=== PATIENT | female | born 1995 | race Hispanic/Latino ===

== ENCOUNTER 2019-01-01 23:47 | Observation (INO) | payer BC ==
[2019-01-02] MEDS ORDERED: Oxycodone/Acetaminophen 5/325 mg Tab ONE (00:29)
[2019-01-02] MEDS ORDERED: Oxycodone/Acetaminophen 5/325 mg Tab PO ONE (00:29)
--- NOTE | 2019-01-02 00:33 | ED PDOC ---
Upper Extremity Pain/Injury Time Seen by Provider: 01/01/19 23:59 Chief Complaint (Nursing): Alcohol Ingestion Chief Complaint (Provider): left hand injury History Per: Patient Additional Complaint(s): 23 y/o female brought in by EMS for evaluation of left hand injury sustained prior to arrival. Patient admits to drinking tonight, states she was racing her friend home and tripped and fell on the side walk, used left hand to break fall. Patient with abrasions to face, denies LOC, dizziness, numbness/weakness left upper extremity. Tetanus up to date Past Medical History Reviewed: Historical Data, Nursing Documentation, Vital Signs Vital Signs: Last Vital Signs Temp 98 F 01/02/19 00:24 Pulse 100 H 01/02/19 00:24 Resp 20 01/02/19 00:24 BP 100/65 01/02/19 00:24 Pulse Ox 98 01/02/19 00:24 Primary Care Provider: John Quintero - Medical History PMH: No Chronic Diseases - Surgical History Surgical History: Tonsillectomy - Family History Family History: States: No Known Family Hx - Home Medications Home Medications: Ambulatory Orders Medication Instructions Recorded Ondansetron ODT [Zofran ODT] 4 mg PO Q8 PRN #10 odt 01/02/19 oxyCODONE/Acetaminophen [Percocet 1 tab PO Q4 PRN #10 tab 01/02/19 5/325 mg Tab] - Allergies Allergies/Adverse Reactions: Allergies Allergy/AdvReac Type Severity Reaction Status Date / Time No Known Allergies Allergy Verified 01/02/19 16:12 Review of Systems ROS Statement: Except As Marked, All Systems Reviewed And Found Negative Musculoskeletal: Positive for: Hand Pain (left) Physical Exam - Reviewed Nursing Documentation Reviewed: Yes Vital Signs Reviewed: Yes - Physical Exam Appears: Positive for: Well, Non-toxic, Uncomfortable Head Exam: Positive for: ATRAUMATIC, NORMAL INSPECTION, NORMOCEPHALIC Skin: Positive for: Normal Color Eye Exam: Positive for: Normal appearance, EOMI, PERRL, Periorbital swelling (left supraorbital abrasion, edema. Abrasion to left maxilla with + tenderness) ENT: Positive for: Normal ENT Inspection Cardiovascular/Chest: Positive for: Regular Rate, Rhythm Respiratory: Positive for: Normal Breath Sounds Pulses-Radial (L): 2+ Pulses-Radial (R): 2+ Extremity: Positive for: Deformity (left hand 5th digit PIP. Distal sensation and motor intact. Skin avulsion palmar aspect left hand digits 3-5. Tender to palpate dorsal left hand 5th metacarpal with + edema, ecchymosis), Other (2 large skin abrasions right knee; FROM. No tenderness, edema, deformity) Neurological/Psych: Positive for: Awake, Alert, Oriented (x3) - Laboratory Results Result Diagrams: 01/02/19 02:06 01/02/19 02:06 - ECG O2 Sat by Pulse Oximetry: 98 - Progress ED Course And Treament: -xray left hand -xray left wrist -CT head -CT facial -Percocet PO - wound care Abrasions cleaned with NS/betadine solution Case discussed with Dr. Santiago, hand specialist on-call, who recommends obtaining CT, ulnar gutter splint, and admit for OR in am. CT scan of the maxillofacial bones. Indication: Trauma. Technique: Axial CT scan images without contrast. Reformatted coronal and sagittal images. Findings: Normal bilateral orbital contents. Normal bilateral medial and inferior orbital osorio. Normal bilateral maxillary bones. Normal bilateral maxillary sinuses. Normal bilateral frontozygomatic arches. Normal bilateral zygomatic temporal arches. Normal nasal bones. Normal anterior nasal spine. Normal soft tissue structures. There is no demonstrated fracture. Normal visualized frontal, ethmoidal and sphenoid sinuses. Impression: No CT evidence of acute bone pathology CT SCAN OF THE BRAIN WITHOUT IV CONTRAST CLINICAL INDICATION: Trauma. TECHNIQUE: Axial and reformatted sagittal and coronal images of the brain obtained without IV contrast administration. Normal size of the ventricles and extra-axial spaces for the patient's age. Normal white matter tracts of the supratentorial brain. Normal basal ganglia and thalami. Normal brainstem. Normal cerebellum. There is no demonstrated extra-axial, intraparenchymal, or intraventricular hemo rrhage. There are no findings of an acute ischemic infarction. Normal calvarium. There is no demonstrated fracture. Normal soft tissue structures. Normal visualized paranasal sinuses. IMPRESSION: Normal unenhanced CT scan of the brain. CT scan of the left hand without contrast. Indication: Fracture. Technique: Axial CT scan images without contrast. Reformatted coronal and sagittal images. Findings: Acute displaced angulated fracture of the base of the proximal phalanx of the fifth finger. Overlying soft tissue edema and swelling. Normal visualized carpal bones. Normal first metacarpus. Normal second through fifth metacarpi. Normal remaining phalanges. Normal carpal articulations. Normal carpometacarpal (CMC) articulation of the thumb. Normal metacarpophalangeal (MCP) joint of the thumb. Normal interphalangeal (IP) joint of the thumb. Normal second through fifth carpometacarpal (CMC) joints. Normal second through fifth metacarpophalangeal (MCP) joints. Normal proximal interphalangeal (PIP) and distal interphalangeal (DIP) joints of the second through fifth fingers. Impression: Acute displaced angulated fracture of the base of the proximal phalanx of the fifth finger. No extension of the fracture line to the corresponding gas metacarpophalangeal articular surface contour. Soft tissue edema and swelling. Patient NV intact post splint application. Difficult to apply splint due to patient uncooperative secondary to pain. Sling applied Dr. Lorenzana discussed case with Dr. Echols for placement in med/surg obs Disposition - Clinical Impression Clinical Impression: Abrasion of right knee, Finger fracture, left, Facial abrasion - Disposition Disposition Time: 02:00 Condition: FAIR
[2019-01-02 02:22] LABS: BASO % 0.5 % (0.0-2.0); EOS % 0.1 % (0.0-4.0); HEMOGLOBIN 14.4 g/dL (12.0-16.0); LYMPH # 1.7 K/uL (1.0-4.3); LYMPH % 22.8 % (20.0-40.0); MEAN CORPUSCULAR HEMOGLOBIN 30.9 pg (27.0-31.0); MEAN CORPUSCULAR HGB CONC 33.9 g/dL (33.0-37.0); MEAN PLATELET VOLUME 8.6 fl (7.2-11.7); MONO # 0.3 K/uL (0.0-0.8); MONO % 4.5 % (0.0-10.0); NEUT # 5.3 K/uL (1.8-7.0); NEUT % 72.1 % (50.0-75.0); RBC 4.68 Mil/uL (3.80-5.20); RED CELL DISTRIBUTION WIDTH 12.3 % (11.5-14.5); WHITE BLOOD COUNT 7.4 K/uL (4.8-10.8)
[2019-01-02 02:27] LABS: ALB/GLOB RATIO 1.6 (1.0-2.1); ALBUMIN 5.2 g/dL (3.5-5.0); ALT/SGPT 33 U/L (9-52); AST/SGOT 28 U/L (14-36); BLOOD UREA NITROGEN 16 mg/dl (7-17); CALCIUM 9.1 mg/dL (8.4-10.2); GFR NON-AFRICAN AMERICAN > 60
[2019-01-02 02:31] LABS: PROTHROMBIN TIME 11.2 Seconds (9.8-13.1)
[2019-01-02 02:34] LABS: PARTIAL THROMBOPLASTIN TIME 33.2 Seconds (25.6-37.1)
--- NOTE | 2019-01-02 02:51 | CP.PCM.HP ---
History of Present Illness - History of Present Illness History of Present Illness: 23 yo F presents after recent fall. Pt was at her senior graduation dinner, where she had "a few" alcoholic beverages when she was running outside, tripped, and fell with L arm outstretched. She reports extreme pain to her 5 metatarsal, alleviated with morphine. She reports sensation intact, and is limited to ROM d/t recent trauma. She denies significant head trauma (however, there are L facial abrasions), LOC, N/V, being pushed/physical abuse. She also sustained abrasion to R knee. She denies gait disturbances. Denies depression, SI/HI PMD: [place] [facility]. Famhx: none Surg: Left lower lobectomy at 1 yr old and tonsilectomy Soc: Denies smoking or illicit drugs. Reports drinking alcohol approximately 4-5 drinks per week. Rx: control, Dapsone and Tazorac (pt using 2 forms of control), Lo loestrin NKDA Present on Admission - Present on Admission Any Indicators Present on Admission: No History of Uncontrolled Diabetes: No Review of Systems - Review of Systems Systems not reviewed;Unavailable: Acuity of Condition - Respiratory Respiratory: absent: Cough, Dyspnea - Gastrointestinal Gastrointestinal: absent: Abdominal Pain - Musculoskeletal Musculoskeletal: As Per HPI Past Patient History - Past Social History Smoking Status: Never Smoked - PSYCHIATRIC Hx Substance Use: No - SURGICAL HISTORY Hx Tonsillectomy: Yes Meds Allergies/Adverse Reactions: Allergies Allergy/AdvReac Type Severity Reaction Status Date / Time Unobtainable Allergy Verified 01/02/19 00:24 Physical Exam - Constitutional Appears: Well, No Acute Distress - Eye Exam Eye Exam: EOMI - ENT Exam ENT Exam: Mucous Membranes Moist - Neck Exam Neck exam: Positive for: Full Rom - Respiratory Exam Respiratory Exam: Clear to Auscultation Bilateral, NORMAL BREATHING PATTERN. absent: Wheezes - Cardiovascular Exam Cardiovascular Exam: REGULAR RHYTHM, +S1, +S2 - GI/Abdominal Exam GI & Abdominal Exam: Normal Bowel Sounds, Soft. absent: Tenderness - Expanded Upper Extremities Exam Left General: abrasion (to hand; 5th phalangel displacement. sensation intact. ROM limited d/t pain) Vascular exam: radial pulse (2+) - Neurological Exam Neurological exam: Alert, CN II-XII Intact, Oriented x3 - Psychiatric Exam Psychiatric exam: Normal Affect, Normal Mood - Skin Additional comments: abrasions x 2 to L face and neck Results - Vital Signs Recent Vital Signs: Last Vital Signs Temp 98 F 01/02/19 00:24 Pulse 100 H 01/02/19 00:24 Resp 20 01/02/19 00:24 BP 100/65 01/02/19 00:24 Pulse Ox 98 01/02/19 02:22 - Labs Result Diagrams: 01/02/19 02:06 01/02/19 02:06 Labs: Laboratory Results - last 24 hr 01/02/19 01/02/19 01/02/19 02:06 02:06 02:06 WBC 7.4 RBC 4.68 Hgb 14.4 Hct 42.6 MCV 91.0 MCH 30.9 MCHC 33.9 RDW 12.3 Plt Count 234 MPV 8.6 Neut % (Auto) 72.1 Lymph % (Auto) 22.8 Williams % (Auto) 4.5 Eos % (Auto) 0.1 Baso % (Auto) 0.5 Neut # (Auto) 5.3 Lymph # (Auto) 1.7 Williams # (Auto) 0.3 Eos # (Auto) 0.0 Baso # (Auto) 0.0 PT 11.2 INR 1.0 APTT 33.2 Sodium 143 Potassium 3.9 Chloride 106 Carbon Dioxide 22 Anion Gap 19 BUN 16 Creatinine 0.7 Est GFR ( Amer) > 60 Est GFR (Non-Af Amer) > 60 Random Glucose 96 Calcium 9.1 Total Bilirubin 0.3 AST 28 ALT 33 Alkaline Phosphatase 68 Total Protein 8.3 H Albumin 5.2 H Globulin 3.1 Albumin/Globulin Ratio 1.6 Assessment & Plan - Assessment and Plan (Free Text) Assessment: 23 yo F presents after recent fall. Admitted for 5 phalangeal fracture/dislocation. Plan: CXR: pending XR HAND: pending XR WRIST: pending CT HEAD: pending CT MAXILLOFACIAL: pending CT UPPER EXT: pending Phalangeal fx/dislocation Admit to Med/surg Imaging studies: pending official interpretation Ortho consulted: Dr. Santiago; further recs appreciated NPO Pain management f/u labs hx of L lower lobectomy: f/u cxr DVT prophylaxis SCDs; probable surgery Case and plan d/w Dr. Onesimo Weathers MD PGY-2
--- NOTE | 2019-01-02 06:23 | CP.PCM.PCO ---
Physician Communication Note - Physician Communication Note Physician Communication Note: Pt states PCP is [facility], discussed and accepted.
--- NOTE | 2019-01-02 08:38 | RAD ---
Date of service: 01/02/2019 PROCEDURE: Left Wrist Radiographs. HISTORY: fall, pain COMPARISON: None. TECHNIQUE: 4 views obtained. FINDINGS: BONES: No acute fracture or destructive bony lesion identified. JOINTS: Normal. No dislocation. SOFT TISSUES: Normal. OTHER FINDINGS: None. IMPRESSION: Unremarkable left wrist radiographs.
--- NOTE | 2019-01-02 08:52 | RAD ---
PROCEDURE: Left Hand Radiographs. HISTORY: fall, pain 5th metacarpal/digit COMPARISON: None. TECHNIQUE: 3 views obtained. FINDINGS: BONES: The transverse fracture of the proximal phalanx left small finger with impaction. Major fracture fragment appears with distal medial angulation. Limited local soft tissue edema is identified. JOINTS: No subluxation or dislocation identified throughout the left hand including left small finger. SOFT TISSUES: As above. OTHER FINDINGS: None. IMPRESSION: Impacted transverse fracture proximal metaphysis proximal phalanx left small finger. No dislocation.
[2019-01-02] MEDS: Sodium Chloride 0.9% 1,000 ML IV SCH (10:30)
--- NOTE | 2019-01-02 11:43 | PN ---
DATE: 01/02/2019 SUBJECTIVE: The patient was admitted after a trip and fall, sustained a fracture and dislocation of the left fifth digit, abrasion to the face and right knee. Denies any other complaints. Feeling very nauseous at present, however. No medical history included, has distant surgical history. She has fifth digit fracture. PHYSICAL EXAMINATION: CONSTITUTIONAL: Awake, alert, oriented. HEENT: Normal except for abrasions noted to her left cheek. HEART: Regular rate and rhythm. No murmurs, rubs, or gallops. S1, S2. LUNGS: Clear in all chakraborty bilaterally. ABDOMEN: Soft, nontender. Bowel sounds x4. EXTREMITIES: Distal PMS is intact. Left upper extremity is in a sling with a splint on the hand. Able to wiggle all fingers. Cap refill is brisk. Right knee has dressed abrasion. ASSESSMENT AND PLAN: Left hand fifth digit fracture and dislocation, cleared for repair in the OR with Dr. Kavon Santiago today. Pain control, advised to continue splint. Neurovascular monitoring. Nausea possibly related to alcohol, medications versus anxiety; Zofran p.r.n.; dehydrated. The patient is n.p.o for the procedure. Normal saline 125 is ordered. Abrasions, wound care, deep venous thrombosis prophylaxis, sequential compression devices, antiembolism hose, ambulation. MARCO Piper
--- NOTE | 2019-01-02 12:23 | CT ---
Date of service: 01/02/2019 PROCEDURE: CT HEAD WITHOUT CONTRAST. HISTORY: head injury COMPARISON: 762.70 TECHNIQUE: Axial computed tomography images were obtained through the head/brain without intravenous contrast. Supplemental Coronal and Sagittal projections created and reviewed. Radiation dose: Total exam DLP = <inf_radiation_dlp> mGy-cm. This CT exam was performed using one or more of the following dose reduction techniques: Automated exposure control, adjustment of the mA and/or kV according to patient size, and/or use of iterative reconstruction technique. FINDINGS: HEMORRHAGE: No intracranial hemorrhage. BRAIN: No mass effect or edema. No atrophy or chronic microvascular ischemic changes. VENTRICLES: Unremarkable. No hydrocephalus. CALVARIUM: Unremarkable. PARANASAL SINUSES: Unremarkable as visualized. No significant inflammatory changes. MASTOID AIR CELLS: Unremarkable as visualized. No inflammatory changes. OTHER FINDINGS: None. IMPRESSION: No acute intracranial abnormalities. No significant findings to account for the clinical presentation. Concordant results (preliminary interpretation) provided by [facility]. Procedure Completed: 01:31. Preliminary Report: Interpreted and electronically signed: 02:39. Final Interpretation: 12:19.
--- NOTE | 2019-01-02 12:24 | CT ---
Date of service: 01/02/2019 PROCEDURE: CT MAXILLOFACIAL BONES WITHOUT CONTRAST HISTORY: fall, left facial pain COMPARISON: None available. TECHNIQUE: Contiguous axial CT images of the maxillofacial bones were obtained. Coronal and sagittal reformats were generated. Radiation dose: Total exam DLP = 663.9 mGy-cm. This CT exam was performed using one or more of the following dose reduction techniques: Automated exposure control, adjustment of the mA and/or kV according to patient size, and/or use of iterative reconstruction technique. FINDINGS: NASAL BONES: Unremarkable. ORBITS: Unremarkable. PARANASAL SINUSES/ MASTOIDS: Clear. MAXILLA: Unremarkable. MANDIBLE/ TEMPOROMANDIBULAR JOINTS: Unremarkable. SKULL BASE: Unremarkable. TEMPORAL BONES: Middle ears and mastoid grossly unremarkable. OTHER FINDINGS: None. IMPRESSION: Unremarkable non contrast enhanced CT of the maxillofacial bones. Concordant results (preliminary interpretation) provided by [facility] [employer]. Procedure Completed: 01:33. Preliminary Report: Interpreted and electronically signed: 03:01. Final Interpretation: 12:21.
--- NOTE | 2019-01-02 12:30 | CT ---
Date of service: 01/02/2019 PROCEDURE: Left upper extremity CT HISTORY: left 5th digit fracture COMPARISON: January 02, 2019. Plain film radiographs TECHNIQUE: 1.25 mm axial acquisition and display. Coronal and sagittal reconstructions. Supplemental 3D volume rendering radiation dosimetry DLP (mGy-cm) 169.35 FINDINGS: Redemonstration of acute non articular fracture proximal phalanx left 5th digit. Major fracture fragments are angulated. IMPRESSION: Redemonstration, confirmation 5th metacarpal fracture. Non articular fracture proximal aspect of the proximal phalanx. Concordant findings (preliminary report) provided by [facility].
--- NOTE | 2019-01-02 13:36 | RAD ---
Date of service: 01/02/2019 HISTORY: Hx of lobectomy; possible surgery COMPARISON: No prior. TECHNIQUE: Chest PA and lateral views FINDINGS: LUNGS: No active pulmonary disease. PLEURA: No significant pleural effusion identified. No pneumothorax apparent. CARDIOVASCULAR: No aortic atherosclerotic calcification present. Normal cardiac size. No pulmonary vascular congestion. OSSEOUS STRUCTURES: No significant abnormalities. VISUALIZED UPPER ABDOMEN: Normal. OTHER FINDINGS: None. IMPRESSION: No active disease.
[2019-01-02] MEDS ORDERED: Lidocaine 1% Inj (20ml) ONE (15:46)
[2019-01-02] MEDS ORDERED: Lidocaine 1% w Epi 1:100,000 Inj ONE (15:46)
[2019-01-02] MEDS ORDERED: Bupivacaine 0.5% Inj(30mL) ONE (15:47)
[2019-01-02] MEDS ORDERED: Lactated Ringer's 1,000 ML IV ONE (16:45)
[2019-01-02] MEDS ORDERED: Propofol 10 mg/ml Inj (20 ML) ONE (16:46)
[2019-01-02] MEDS ORDERED: Dexamethasone 4 mg/1 ml ONE (16:47)
[2019-01-02] MEDS: HYDROmorphone 0.5 mg/0.5 ml ISec IVP PRN ×4 (17:55→19:40)
[2019-01-02] MEDS ORDERED: HYDROmorphone 0.5 mg/0.5 ml ISec IVP PRN (20:03)
[2019-01-02] MEDS ORDERED: HYDROmorphone 0.5 mg/0.5 ml ISec ONE (20:09)
[2019-01-03] MEDS: Sodium Chloride 0.9% 1,000 ML IV SCH (02:31)
[2019-01-03 04:54] VITALS: TEMP 97.9
[2019-01-03 08:12] VITALS: BP 100/59; PULSE 69; RESP 20
--- NOTE | 2019-01-03 09:33 | RAD ---
PROCEDURE: Left Hand Radiographs. HISTORY: Postoperative assessment COMPARISON: Comparison made with prior radiographs of the left hand 01/02/2019 TECHNIQUE: 3 views obtained through a plaster cast which obscures fine soft tissue and bone detail. FINDINGS: BONES: ORIF with 2 in situ K-wires reducing a fracture base of the proximal phalanx 5th finger. There appears to be satisfactory alignment so far as can be seen JOINTS: Normal. No osteoarthritic changes. SOFT TISSUES: Normal. OTHER FINDINGS: None. IMPRESSION: ORIF with 2 in situ K-wires reducing a fracture base of the proximal phalanx 5th finger. There appears to be satisfactory alignment so far as can be seen
--- NOTE | 2019-01-03 09:35 | RAD ---
Date of service: 01/02/2019 PROCEDURE: Left Wrist Radiographs. HISTORY: postop COMPARISON: Correlation made with prior radiographs of wrist TECHNIQUE: 4 views obtained. FINDINGS: BONES: Normal. No fracture. JOINTS: Normal. No dislocation. SOFT TISSUES: Normal. OTHER FINDINGS: ORIF with 2 in situ K-wires reducing a fracture base of the proximal phalanx 5th finger. There appears to be satisfactory alignment so far as can be seen IMPRESSION: No evidence of acute fractures of the left wrist ORIF with 2 in situ K-wires reducing a fracture base of the proximal phalanx 5th finger. There appears to be satisfactory alignment so far as can be seen
--- NOTE | 2019-01-05 23:48 | OP ---
PROCEDURE DATE: 01/02/2019 SURGEON: Kavon Santiago MD SOCIOLOGY PROFESSOR: [facility] PREOPERATIVE DIAGNOSIS: Displaced left fifth proximal phalanx fracture, closed. POSTOPERATIVE DIAGNOSIS: Displaced left fifth proximal phalanx fracture, closed. PROCEDURE: Closed reduction and percutaneous pinning of proximal phalanx fracture, extra-articular, [id number]. ANESTHESIA: Local and IV sedation. BLOOD LOSS: None. COMPLICATIONS: None. DISPOSITION: Stable to the recovery room. INDICATION: This is a 23-year-old female who sustained slip and fall, presented through [facility] with displaced and deformed left fifth digit. Initial x-rays confirmed fracture of proximal phalanx extra-articular with displacement and hyperextension of the digit. The patient is indicated for the above surgery. Risks and benefits were explained. Risks included but not limited to bleeding, infection, tendon, nerve or vessel injury, instability, malunion, and nonunion. The patient understood the above risks and elected to proceed. Informed consent was obtained. DESCRIPTION OF PROCEDURE: The patient was brought to the operating room and placed supine on the operating room table. After anesthesia was given and prophylactic antibiotics, a well-padded tourniquet was placed on the patient's right upper extremity. The entire extremity was then prepped and draped in a standard surgical fashion, and a time-out was performed. Then, under fluoroscopic imaging, a close reduction was performed. This included hyperflexion of the MCP joint of the fifth digit, which realigned the finger. With reduction in place, two 3.5-mm [place] wires were advanced starting at the proximal phalanx ahead across the fracture site into the body of the phalanx and crossing distal to the fracture site. This provided stability for the finger in both AP, lateral and oblique views and resorted anatomic length and rotation of the digit. The rotation of the finger was well aligned and symmetric to the contralateral fifth digit on the other hand. Fluoroscopic images again confirmed well aligned to the finger with good placement of wires. The K-wires were cut short protruding to the skin and bent. A pink capsule was placed followed by sterile dressing of Xeroform, 4x4, and Nathalia. An ulnar gutter plaster splint was placed. The patient tolerated the procedure well and was returned to the recovery room in excellent condition. Kavon Santiago MD [facility] # [id number]
[2019-01-06 05:14] VITALS: O2SAT 98
== END 2019-01-03 12:00 | disposition home or self-care (01) ==
LOC: H.ER 23:47 → H.ERHOLD 01-02 01:51 → H.MEDSURG1 01-02 04:34
PROVIDERS: ADMIT Family Medicine; ATTEND Family Medicine
DX: S00.81XA Abrasion of other part of head, initial encounter (principal); S62.619A Displaced fracture of proximal phalanx of unspecified finger, initial encounter for closed fracture; S80.211A Abrasion, right knee, initial encounter; W01.0XXA Fall on same level from slipping, tripping and stumbling without subsequent striking against object, initial encounter
CPT/HCPCS: 26727; 70450; 70486; 71046; 73110; 73130; 73200; 80053; 81025; 85025; 85610; 85730; 86850; 86900; 99284; G0378; J0690; J1100; J1170; J1885; J2001; J2270; J2405; J2704; J3010; J7030; J7120